=== PATIENT | female | born 1960 | race Caucasian/White ===

== ENCOUNTER → 2016-05-25 | Outpatient (CLI) | payer BC ==
[2016-05-25 10:14] LABS: ALT 22 U/L (9-52); AST 15 U/L (14-36); Alkaline Phosphatase 95 U/L (38-126); Anion Gap 12 mmol/L; Blood Urea Nitrogen 19 mg/dL (7-17); Calcium 9.8 mg/dL (8.4-10.2); Carbon Dioxide 26 mmol/L (22-30); Chloride 105 mmol/L (98-107); Cholesterol 202 mg/dL (<200); Glucose 127 mg/dL (74-99); HDL Cholesterol 54 mg/dL (40-60); Non-African American GFR(MDRD) >60 (>60 ml/min/1.73 sqM); Potassium 5.1 mmol/L (3.5-5.1); Sodium 143 mmol/L (137-145); Total Bilirubin 0.6 mg/dL (0.2-1.3); Triglycerides 128 mg/dL (<150)
== END | disposition home or self-care (01) ==
LOC: LABWHC1 09:23
PROVIDERS: ATTEND Internal Medicine Interventional Cardiology
DX: E78.2 Mixed hyperlipidemia (principal)
CPT/HCPCS: 36415; 80053; 80061

== ENCOUNTER → 2017-10-24 | Outpatient (CLI) | payer BC | END | disposition home or self-care (01) | LOC: LABWHC1 16:24 | PROVIDERS: ATTEND Nurse Practitioner Women's Health | DX: R07.9 Chest pain, unspecified (principal) | CPT/HCPCS: 36415; 84484; 86140; 93005 ==

== ENCOUNTER → 2018-10-07 | Outpatient (CLI) | payer BC | END | disposition home or self-care (01) | LOC: LABWHC1 14:06 | PROVIDERS: ATTEND Family Medicine | DX: R07.9 Chest pain, unspecified (principal) | CPT/HCPCS: 36415; 84484 ==

== ENCOUNTER → 2018-10-08 | Outpatient (CLI) | payer BC ==
--- NOTE | 2018-10-08 08:57 | CT ---
EXAMINATION TYPE: CT chest wo con DATE OF EXAM: 10/08/2018 COMPARISON: None HISTORY: 57-year-old female shortness of breath, Difficulty breathing TECHNIQUE: Contiguous axial scanning of the chest without IV contrast. Coronal and sagittal reconstru ctions performed. CT DLP: 506.4 mGycm Automated exposure control for dose reduction was used. FINDINGS: Heart normal size without pericardial effusion. Aorta normal caliber with conventional arch vessel branching anatomy. No thoracic lymphadenopathy. Strandy atelectasis at the anterior lung bases. No consolidation or pleural effusion. Tiny hiatal hernia. Visualized upper abdomen otherwise shows no gross abnormality. Bones: Mild degenerative disc disease midthoracic spine. IMPRESSION: TINY HIATAL HERNIA. SOME STRANDY BASILAR ATELECTASIS. OTHERWISE, NO SPECIFIC ABNORMALITY SEEN.
== END | disposition home or self-care (01) ==
LOC: RADCTMAIN 07:34
PROVIDERS: ATTEND Family Medicine
DX: J98.11 Atelectasis (principal); K44.9 Diaphragmatic hernia without obstruction or gangrene
CPT/HCPCS: 71250

== ENCOUNTER 2018-11-19 15:07 | Observation (INO) | payer BC ==
[2018-11-19] MEDS ORDERED: ASPIRIN 81 MG PO STA (15:29)
[2018-11-19] MEDS ORDERED: NITROGLYCERIN OINT 1 INCH/GM PACKET TOPICAL STA (15:29)
[2018-11-19] MEDS ORDERED: NITROGLYCERIN SL TABS 0.4 MG TAB SUBLINGUAL STA (15:29)
[2018-11-19] MEDS ORDERED: ACETAMINOPHEN TAB 500 MG TAB PO STA (15:30)
[2018-11-19 15:50] LABS: Basophils # (A) 0.1 k/uL (0-0.2); Basophils % (A) 1 %; Eosinophils # (A) 0.1 k/uL (0-0.7); Eosinophils % (A) 1 %; HCT 39.1 % (34.0-46.0); HGB 12.9 gm/dL (11.4-16.0); Lymphocytes # (A) 2.5 k/uL (1.0-4.8); Lymphocytes % (A) 30 %; MCH 27.6 pg (25.0-35.0); MCHC 33.1 g/dL (31.0-37.0); MCV 83.4 fL (80.0-100.0); Mean Platelet Volume 6.5; Monocytes # (A) 0.5 k/uL (0-1.0); Monocytes % (A) 6 %; Neutrophils # (A) 5.1 k/uL (1.3-7.7); Neutrophils % (A) 61 %; Platelet Count 350 k/uL (150-450); RBC 4.69 m/uL (3.80-5.40); RDW 13.9 % (11.5-15.5); WBC 8.4 k/uL (3.8-10.6)
--- NOTE | 2018-11-19 15:52 | ED ---
General Adult HPI - General Chief complaint: Chest Pain Stated complaint: Chest pain Time Seen by Provider: 11/19/18 15:15 Source: patient, RN notes reviewed Mode of arrival: wheelchair Limitations: no limitations - History of Present Illness Initial comments: This is a 57-year-old female with past medical history significant for a heart attack-and high blood pressure and high cholesterol. Patient states last night she had some chest pressure in the evening and it went away. Patient states today after lunch she started having some heaviness in her chest and a little bit of burning. Patient states the burning was consistent with some heartburn s he's had in the past but the heaviness did not feel similar to any heartburn she's had. Patient states that heaviness reminder her of the pain she had when she had a heart attack. Patient states the pain does radiate up into her left jaw. Patient denies any diaphoretic episodes. Patient denies any shortness of breath. Patient does states she's very nauseated. Patient denies abdominal pain patient denies any vomiting or diarrhea. Patient denies any lightheadedness dizziness or near syncopal episode. Patient denies any calf tenderness or leg swelling. - Related Data Home Medications Medication Instructions Recorded Confirmed Aspirin EC [Ecotrin Low Dose] 81 mg PO DAILY 12/14/15 11/19/18 Clopidogrel [Plavix] 75 mg PO DAILY 12/14/15 11/19/18 Albuterol Inhaler [Ventolin Hfa 2 puff INHALATION RT-Q6H PRN 11/19/18 11/19/18 Inhaler] Omeprazole 20 mg PO DAILY 11/19/18 11/19/18 Previous Rx's Medication Instructions Recorded Atorvastatin [Lipitor] 40 mg PO DAILY #40 tab 12/03/15 Metoprolol Tartrate [Lopressor] 25 mg PO BID #180 tab 12/03/15 Allergies Allergy/AdvReac Type Severity Reaction Status Date / Time gluten Allergy Rash/Hives Verified 11/19/18 15:56 diphenhydramine AdvReac Severe paradoxical Verified 11/19/18 15:56 excitation metoclopramide HCl AdvReac Unknown Verified 11/19/18 15:56 [From Reglan] Opioids - Morphine Analogues AdvReac patient Verified 11/19/18 15:56 does not want Opioids-Meperidine and AdvReac patient Verified 11/19/18 15:56 Related does not [Opioids-Meperidine & want Related] Opioids-Methadone and Related AdvReac patient Verified 11/19/18 15:56 [Opioids-Methadone & Related] does not want Review of Systems ROS Statement: Those systems with pertinent positive or pertinent negative responses have been documented in the HPI. ROS Other: All systems not noted in ROS Statement are negative. Past Medical History Past Medical History: Chest Pain / Angina, GERD/Reflux, Hyperlipidemia, Myocardial Infarction (CT) Additional Past Medical History / Comment(s): GLUTEN ALLERGY,ANEMIA, "HEADACHES", RLS Last Myocardial Infarction Date:: 12/02/2015 History of Any Multi-Drug Resistant Organisms: None Reported Past Surgical History: Section Additional Past Surgical History / Comment(s): DENTAL IMPLANTS Past Anesthesia/Blood Transfusion Reactions: Motion Sickness Additional Past Anesthesia/Blood Transfusion Reaction / Comment(s): CLAUSTERPHOBIA Past Psychological History: Anxiety Smoking Status: Never smoker Past Alcohol Use History: None Reported Past Drug Use History: None Reported - Past Family History Father Family Medical History: Congestive Heart Failure (CHF), CVA/TIA, Diabetes Mellitus Mother Family Medical History: Diabetes Mellitus Additional Family Medical History / Comment(s): OBESITY General Exam - General Exam Comments Initial Comments: GENERAL: Patient is well-developed and well-nourished. Patient is nontoxic and well- hydrated and is in mild distress. ENT: Neck is soft and supple. No significant lymphadenopathy is noted. Oropharynx is clear. Moist mucous membranes. Neck has full range of motion without eliciting any pain. EYES: The sclera were anicteric and conjunctiva were pink and moist. Extraocular movements were intact and pupils were equal round and reactive to light. Eyelids were unremarkable. PULMONARY: Unlabored respirations. Good breath sounds bilaterally. No audible rales rhonchi or wheezing was noted. CARDIOVASCULAR: There is a regular rate and rhythm without any murmurs gallops or rubs. ABDOMEN: Soft and nontender with normal bowel sounds. No palpable organomegaly was noted. There is no palpable pulsatile mass. SKIN: Skin is clear with no lesions or rashes and otherwise unremarkable. NEUROLOGIC: Patient is alert and oriented x3. Cranial nerves II through XII are grossly intact. Motor and sensory are also intact. Normal speech, volume and content. Symmetrical smile. MUSCULOSKELETAL: Normal extremities with adequate strength and full range of motion. No lower extremity swelling or edema. No calf tenderness. LYMPHATICS: No significant lymphadenopathy is noted PSYCHIATRIC: Normal psychiatric evaluation. Normal interpersonal interactions appears functionally intact in deals appropriately with others. No signs of depression. No signs of anxiety. Limitations: no limitations Course Vital Signs 11/19/18 11/19/18 11/19/18 15:13 15:44 15:57 Temperature 98.1 F Pulse Rate 84 75 Pulse Rate [ 60 Entry Level Receptionist ] Respiratory 18 16 Rate Blood Pressure 157/95 142/92 O2 Sat by Pulse 99 100 Oximetry 11/19/18 16:11 Temperature Pulse Rate 87 Pulse Rate [ Entry Level Receptionist ] Respiratory 18 Rate Blood Pressure 123/76 O2 Sat by Pulse 95 Oximetry Medical Decision Making - Medical Decision Making EKG shows normal sinus rhythm at 84 bpm AL interval is 158 QRSs 86 QT interval 380 QTC is 449. Patient's EKG shows no ST segment elevation or depression I compared this EKG to an old EKG and there are no acute changes noted. Chest x-ray shows no acute abnormality Patient's chest pain seemed to relieve when she took nitroglycerin. I started the patient heparin. I spoke with Dr. lam he agreed to admit the patient admitted the patient I consult cardiology I continued heparin and aspirin and Nitropaste on the floor. - Lab Data Result diagrams: 11/19/18 15:29 11/19/18 15:29 Lab Results 11/19/18 11/19/18 11/19/18 Range/Units 15:29 15:29 15:29 WBC 8.4 (3.8-10.6) k/uL RBC 4.69 (3.80-5.40) m/uL Hgb 12.9 (11.4-16.0) gm/dL Hct 39.1 (34.0-46.0) % MCV 83.4 (80.0-100.0) fL MCH 27.6 (25.0-35.0) pg MCHC 33.1 (31.0-37.0) g/dL RDW 13.9 (11.5-15.5) % Plt Count 350 (150-450) k/uL Neutrophils % 61 % Lymphocytes % 30 % Monocytes % 6 % Eosinophils % 1 % Basophils % 1 % Neutrophils # 5.1 (1.3-7.7) k/uL Lymphocytes # 2.5 (1.0-4.8) k/uL Monocytes # 0.5 (0-1.0) k/uL Eosinophils # 0.1 (0-0.7) k/uL Basophils # 0.1 (0-0.2) k/uL PT 9.5 (9.0-12.0) sec INR 0.9 (<1.2) APTT 22.9 (22.0-30.0) sec Sodium 142 (137-145) mmol/L Potassium 4.8 (3.5-5.1) mmol/L Chloride 105 (98-107) mmol/L Carbon Dioxide 28 (22-30) mmol/L Anion Gap 9 mmol/L BUN 16 (7-17) mg/dL Creatinine 0.44 L (0.52-1.04) mg/dL Est GFR (CKD-EPI)AfAm >90 (>60 ml/min/1.73 sqM) Est GFR (CKD-EPI)NonAf >90 (>60 ml/min/1.73 sqM) Glucose 135 H (74-99) mg/dL Calcium 9.6 (8.4-10.2) mg/dL Magnesium 1.8 (1.6-2.3) mg/dL Total Bilirubin 0.7 (0.2-1.3) mg/dL AST 23 (14-36) U/L ALT 19 (9-52) U/L Alkaline Phosphatase 104 (38-126) U/L Troponin I (0.000-0.034) ng/mL Total Protein 7.5 (6.3-8.2) g/dL Albumin 4.3 (3.5-5.0) g/dL 11/19/18 Range/Units 15:29 WBC (3.8-10.6) k/uL RBC (3.80-5.40) m/uL Hgb (11.4-16.0) gm/dL Hct (34.0-46.0) % MCV (80.0-100.0) fL MCH (25.0-35.0) pg MCHC (31.0-37.0) g/dL RDW (11.5-15.5) % Plt Count (150-450) k/uL Neutrophils % % Lymphocytes % % Monocytes % % Eosinophils % % Basophils % % Neutrophils # (1.3-7.7) k/uL Lymphocytes # (1.0-4.8) k/uL Monocytes # (0-1.0) k/uL Eosinophils # (0-0.7) k/uL Basophils # (0-0.2) k/uL PT (9.0-12.0) sec INR (<1.2) APTT (22.0-30.0) sec Sodium (137-145) mmol/L Potassium (3.5-5.1) mmol/L Chloride (98-107) mmol/L Carbon Dioxide (22-30) mmol/L Anion Gap mmol/L BUN (7-17) mg/dL Creatinine (0.52-1.04) mg/dL Est GFR (CKD-EPI)AfAm (>60 ml/min/1.73 sqM) Est GFR (CKD-EPI)NonAf (>60 ml/min/1.73 sqM) Glucose (74-99) mg/dL Calcium (8.4-10.2) mg/dL Magnesium (1.6-2.3) mg/dL Total Bilirubin (0.2-1.3) mg/dL AST (14-36) U/L ALT (9-52) U/L Alkaline Phosphatase (38-126) U/L Troponin I <0.012 (0.000-0.034) ng/mL Total Protein (6.3-8.2) g/dL Albumin (3.5-5.0) g/dL Critical Care Time Critical Care Time: Yes Total Critical Care Time: 35 Disposition Clinical Impression: Unstable angina pectoris Disposition: ADMITTED IP TO THIS HOSP Referrals: Cleveland Lam MD [Primary Care Provider] - 1-2 days Time of Disposition: 17:25
[2018-11-19 15:58] LABS: INR 0.9 (<1.2); Partial Thromboplastin Time 22.9 sec (22.0-30.0); Prothrombin Time 9.5 sec (9.0-12.0)
[2018-11-19 16:00] LABS: ALT 19 U/L (9-52); AST 23 U/L (14-36); African American GFR (CKD) >90 (>60 ml/min/1.73 sqM); Albumin 4.3 g/dL (3.5-5.0); Alkaline Phosphatase 104 U/L (38-126); Anion Gap 9 mmol/L; Blood Urea Nitrogen 16 mg/dL (7-17); Calcium 9.6 mg/dL (8.4-10.2); Carbon Dioxide 28 mmol/L (22-30); Chloride 105 mmol/L (98-107); Glucose 135 mg/dL (74-99); Magnesium 1.8 mg/dL (1.6-2.3); Non-African American GFR(CKD) >90 (>60 ml/min/1.73 sqM); Potassium 4.8 mmol/L (3.5-5.1); Sodium 142 mmol/L (137-145); Total Bilirubin 0.7 mg/dL (0.2-1.3); Total Protein 7.5 g/dL (6.3-8.2)
--- NOTE | 2018-11-19 16:00 | XR ---
EXAMINATION TYPE: XR chest 2V DATE OF EXAM: 11/19/2018 COMPARISON: 12/14/2015 HISTORY: 57-year-old female with chest pain TECHNIQUE: PA and lateral views FINDINGS: Heart normal size. Aorta and pulmonary vasculature within normal limits. Some strandy atelectasis in the lower lungs. No consolidation or pleural effusion. IMPRESSION: No acute cardiopulmonary process.
[2018-11-19] MEDS ORDERED: LORazepam 2 MG/ML INJ IV STA (17:01)
[2018-11-19] MEDS ORDERED: NITROGLYCERIN SL TABS 0.4 MG TAB SUBLINGUAL PRN (17:25)
[2018-11-19 18:48] VITALS: BMI 32.1
[2018-11-19] MEDS ORDERED: ALBUTEROL NEBULIZED 2.5 MG/3 ML INHALATION PRN (20:42)
[2018-11-19] MEDS ORDERED: ACETAMINOPHEN TAB 325 MG TAB PO PRN (20:46)
[2018-11-19] MEDS: NITROGLYCERIN OINT 1 INCH/GM PACKET TOPICAL SCH (23:20)
[2018-11-20 04:08] LABS: Cholesterol 148 mg/dL (<200); HDL Cholesterol 37 mg/dL (40-60); LDL Cholesterol,Calculated 91 mg/dL (0-99); Triglycerides 101 mg/dL (<150)
[2018-11-20] MEDS: NITROGLYCERIN OINT 1 INCH/GM PACKET TOPICAL SCH (04:09)
[2018-11-20 05:16] VITALS: RESP 18
[2018-11-20] MEDS ORDERED: METOPROLOL TARTRATE 25 MG TAB PO SCH (09:00)
[2018-11-20] MEDS ORDERED: ASPIRIN 325 MG TAB PO SCH (09:00)
[2018-11-20] MEDS ORDERED: ATORVASTATIN 40 MG TAB PO SCH (09:00)
[2018-11-20] MEDS ORDERED: ASPIRIN 81 MG PO SCH (09:00)
[2018-11-20] MEDS ORDERED: CLOPIDOGREL 75 MG TAB PO SCH (09:00)
[2018-11-20] MEDS ORDERED: ATORVASTATIN 80 MG TAB PO SCH (09:00)
--- NOTE | 2018-11-20 11:05 | ECHOF ---
Referral Reason:cp MEASUREMENTS -------- HEIGHT: 170.2 cm WEIGHT: 104.3 kg BP: 114/74 RVIDd: 3.1 cm (< 3.3) IVSd: 0.9 cm (0.6 - 1.1) LVIDd: 4.4 cm (3.9 - 5.3) LVPWd: 1.3 cm (0.6 - 1.1) IVSs: 1.2 cm LVIDs: 3.1 cm LVPWs: 1.2 cm LA Diam: 4.4 cm (2.7 - 3.8) LAESV Index (A-L): 29.68 ml/m Ao Diam: 2.8 cm (2.0 - 3.7) AV Cusp: 1.8 cm (1.5 - 2.6) LA Diam: 4.1 cm (2.7 - 3.8) MV EXCURSION: 17.007 mm (> 18.000) MV EF SLOPE: 94 mm/s (70 - 150) EPSS: 0.8 cm MV E Parminder: 0.56 m/s MV DecT: 188 ms MV A Parminder: 0.81 m/s MV E/A Ratio: 0.70 RAP: 5.00 mmHg RVSP: 12.67 mmHg FINDINGS -------- Sinus rhythm. This was a technically good study. LV size, wall thickness and systolic function are normal, with an EF greater than 55%. The left joelle tricular size is normal. The right ventricle is normal in size. The left atrium is mildly dilated. LA is midly dilated 29-33ml/m2. The right atrial size is normal. The aortic valve is trileaflet, and appears structurally normal. No aortic stenosis or regurgitation. Mild mitral annular calcification present. Mild mitral regurgitation is present. Mild tricuspid regurgitation present. There is no evidence of pulmonary hypertension. The right v entricular systolic pressure, as measured by Doppler, is 12.67mmHg. There is no pulmonic regurgitation present. The aortic root size is normal. There is no pericardial effusion. CONCLUSIONS -------- 1. Sinus rhythm. 2. This was a technically good study. 3. LV size, wall thickness and systolic function are normal, with an EF greater than 55%. 4. The left ventricular size is normal. 5. The right ventricle is normal in size. 6. The left atrium is mildly dilated. 7. LA is midly dilated 29-33ml/m2. 8. The right atrial size is normal. 9. The aortic valve is trileaflet, and appears structurally normal. No aortic stenosis or regurgitati on. 10. Mild mitral annular calcification present. 11. Mild mitral regurgitation is present. 12. Mild tricuspid regurgitation present. 13. There is no evidence of pulmonary hypertension. 14. The right ventricular systolic pressure, as measured by Doppler, is 12.67mmHg. 15. There is no pulmonic regurgitation present. 16. The aortic root size is normal. 17. There is no pericardial effusion. STAVE BLOCK ROLLER: Mindi Nina RDCS
--- NOTE | 2018-11-20 11:37 | P.CRDCN ---
History of Present Illness History of present illness: This is a pleasant 57-year-old female past medical history significant for coronary artery disease, dyslipidemia, hypertension and gastroesophageal reflux disease. She follows in the office with Dr. Valentine. We have been asked to see her in consultation secondary to chest discomfort. She states Sunday night while at work she felt a heavy sensation in the chest. She was sitting down at her desk finishing up some work and did feel quite emotionally stressed at that time. That episode lasted about 20 minutes. There was no radiation to the arm, back, neck or jaw. There was no associated symptoms. Again yesterday morning while at work she was sitting at her desk and 20 minutes after eating potatoes from the cafeteria she felt a burning sensation in the mid-sternal region that radiated up her chest into her neck more so on the left side. Persisted for about 15 minutes so she came to ED for evaluation. NTG given and her symptoms subsided. No further chest discomfort since being admitted. EKG reveals sinus mechanism with LVH. Chest x-ray is negative for an acute cardiopulmonary process. Laboratory data reviewed, cardiac enzymes negative 3 CBC unremarkable, potassium 4.8, creatinine 0.44, magnesium 1.8, LDL 91. Current daily cardiac medications include aspirin 81 mg daily, atorvastatin 40 mg daily, Plavix 75 mg daily and Lopressor 25 mg twice a day. Most recent cardiac catheterization performed in 2016 revealed 80% stenosis of the mid OM branch. At that time angioplasty was not recommended maximum medical therapy was initiated. At the time of my exam: CONSTITUTIONAL: Denies fever. Denies chills. EYES: Denies blurred vision. Denies vision changes. Denies eye pain. EARS, NOSE, MOUTH & THROAT: Denies headache. Denies sore throat. Denies ear pain. CARDIOVASCULAR: Denies chest pain. Denies shortness of breath. Denies orthopnea. Denies PND. Denies palpitations. RESPIRATORY: Denies cough. GASTROINTESTINAL: Denies abdominal pain. Denies diarrhea. Denies constipation. Denies nausea. Denies vomiting. MUSCULOSKELETAL: Denies myalgias. INTEGUMENTARY: Denies pruitis. Denies rash. NEUROLOGIC: Denies numbness. Denies tingling. Denies weakness. PSYCHIATRIC: Denies anxiety. Denies depression. ENDOCRINE: Denies fatigue. Denies weight change. Denies polydipsia. Denies polyurina. GENITOURINARY: Denies burning, hematuria or urgency with micturation. HEMATOLOGIC: Denies history of anemia. Denies bleeding. Blood pressure 114/74 heart rate 70 afebrile maintaining oxygen saturation on room air GENERAL: This is a 57-year-old female in no apparent distress at the time of my examination. HEENT: Head is atraumatic, normocephalic. Pupils are equal, round. Sclerae anicteric. Conjunctivae are clear. Mucous membranes of the mouth are moist. Neck is supple. There is no jugular venous distention. No carotid bruit is heard. LUNGS: Clear to auscultation no wheezes, rales or rhonchi. No chest wall tenderness is noted on palpation or with deep breathing. HEART: Regular rate and rhythm without murmurs, rubs or gallops. S1 and S2 heard. ABDOMEN: Soft, nontender. Bowel sounds are heard. No organomegaly noted. EXTREMITIES: No evidence of peripheral edema and no calf tenderness noted. VASCULAR: Radial and dorsalis pedis pulses palpated, no evidence of clubbing. NEUROLOGIC: Patient is awake, alert and oriented x3. ASSESSMENT Chest pain, atypical. An acute coronary event has been ruled out. Coronary artery disease Hypertension Dyslipidemia Gastroesophageal reflux disease Obesity, BMI 36 PLAN An acute coronary event has been ruled out with no EKG evidence of ischemia and negative cardiac enzymes. Obtain 2-D echocardiogram and Doppler study to assess cardiac structure and function. Perform Cardiolite stress test to assess for reversibility in the area of known ischemia or for possibility of progression of disease. Increase atorvastatin to 80 mg daily for target LDL of less than 70. If stress test is normal she may be discharged from a cardiac perspective to follow-up with Dr. Valentine in the office. Thank you kindly for this consultation. Nurse Practitioner note has been reviewed, I agree with a documented findings and plan of care. Patient was seen and examined. Past Medical History Past Medical History: Chest Pain / Angina, GERD/Reflux, Hyperlipidemia, Myocardial Infarction ([place]) Additional Past Medical History / Comment(s): GLUTEN ALLERGY,ANEMIA, "HEADACHES", RLS Last Myocardial Infarction Date:: 12/02/2015 History of Any Multi-Drug Resistant Organisms: None Reported Past Surgical History: Section, Heart Catheterization Additional Past Surgical History / Comment(s): DENTAL IMPLANTS Past Anesthesia/Blood Transfusion Reactions: Motion Sickness Additional Past Anesthesia/Blood Transfusion Reaction / Comment(s): CLAUSTERPHOBIA Past Psychological History: Anxiety Smoking Status: Never smoker Past Alcohol Use History: None Reported Past Drug Use History: None Reported - Past Family History Father Family Medical History: Congestive Heart Failure (CHF), CVA/TIA, Diabetes Mellitus Additional Family Medical History / Comment(s): smoker Mother Family Medical History: Diabetes Mellitus Additional Family Medical History / Comment(s): OBESITY Medications and Allergies Home Medications Medication Instructions Recorded Confirmed Type Atorvastatin [Lipitor] 40 mg PO DAILY #40 tab 12/03/15 11/19/18 Rx Metoprolol Tartrate [Lopressor] 25 mg PO BID #180 tab 12/03/15 11/19/18 Rx Aspirin EC [Ecotrin Low Dose] 81 mg PO DAILY 12/14/15 11/19/18 History Clopidogrel [Plavix] 75 mg PO DAILY 12/14/15 11/19/18 History Albuterol Inhaler [Ventolin Hfa 2 puff INHALATION RT-Q6H PRN 11/19/18 11/19/18 History Inhaler] Omeprazole 20 mg PO DAILY 11/19/18 11/19/18 History Allergies Allergy/AdvReac Type Severity Reaction Status Date / Time gluten Allergy Rash/Hives Verified 11/19/18 15:56 diphenhydramine AdvReac Severe paradoxical Verified 11/19/18 15:56 excitation metoclopramide HCl AdvReac Unknown Verified 11/19/18 15:56 [From Reglan] Opioids - Morphine Analogues AdvReac patient Verified 11/19/18 15:56 does not want Opioids-Meperidine and AdvReac patient Verified 11/19/18 15:56 Related does not [Opioids-Meperidine & want Related] Opioids-Methadone and Related AdvReac patient Verified 11/19/18 15:56 [Opioids-Methadone & Related] does not want Physical Exam Vitals: Vital Signs Temp Pulse Pulse Pulse Resp BP BP 11/20/18 07:00 97.6 F 70 18 114/74 11/20/18 04:00 97.7 F 68 18 103/62 11/20/18 00:00 74 16 11/19/18 23:35 97.6 F 74 16 120/66 11/19/18 20:00 75 16 11/19/18 18:15 97.5 F L 75 16 11/19/18 18:09 98.1 F 75 18 125/71 11/19/18 17:32 75 18 125/71 11/19/18 16:11 87 18 123/76 11/19/18 15:57 75 16 142/92 11/19/18 15:44 60 11/19/18 15:13 98.1 F 84 18 157/95 BP Pulse Ox 11/20/18 07:00 95 11/20/18 04:00 95 11/20/18 00:00 11/19/18 23:35 93 L 11/19/18 20:00 11/19/18 18:15 124/80 96 11/19/18 18:09 98 11/19/18 17:32 98 11/19/18 16:11 95 11/19/18 15:57 100 11/19/18 15:44 11/19/18 15:13 99 Intake and Output 11/19/18 11/20/18 11/20/18 22:59 06:59 14:59 Other: # Voids 1 Weight 104.326 kg Results 11/19/18 15:29 11/19/18 15:29 Cardiac Enzymes 11/19/18 11/19/18 11/19/18 Range/Units 15:29 15:29 21:16 AST 23 (14-36) U/L Troponin I <0.012 <0.012 (0.000-0.034) ng/mL 11/20/18 Range/Units 03:26 AST (14-36) U/L Troponin I <0.012 (0.000-0.034) ng/mL Coagulation 11/19/18 Range/Units 15:29 PT 9.5 (9.0-12.0) sec APTT 22.9 (22.0-30.0) sec Lipids 11/20/18 Range/Units 03:26 Triglycerides 101 (<150) mg/dL Cholesterol 148 (<200) mg/dL HDL Cholesterol 37 L (40-60) mg/dL CBC 11/19/18 Range/Units 15:29 WBC 8.4 (3.8-10.6) k/uL RBC 4.69 (3.80-5.40) m/uL Hgb 12.9 (11.4-16.0) gm/dL Hct 39.1 (34.0-46.0) % Plt Count 350 (150-450) k/uL Comprehensive Metabolic Panel 11/19/18 Range/Units 15:29 Sodium 142 (137-145) mmol/L Potassium 4.8 (3.5-5.1) mmol/L Chloride 105 (98-107) mmol/L Carbon Dioxide 28 (22-30) mmol/L BUN 16 (7-17) mg/dL Creatinine 0.44 L (0.52-1.04) mg/dL Glucose 135 H (74-99) mg/dL Calcium 9.6 (8.4-10.2) mg/dL AST 23 (14-36) U/L ALT 19 (9-52) U/L Alkaline Phosphatase 104 (38-126) U/L Total Protein 7.5 (6.3-8.2) g/dL Albumin 4.3 (3.5-5.0) g/dL Current Medications Generic Name Dose Route Start Last Admin Trade Name Freq PRN Reason Stop Dose Admin Acetaminophen 650 mg 11/19/18 20:46 11/19/18 23:20 Tylenol Tab PO 650 mg Q6HR PRN Administration Fever and/ or Mild Pain Albuterol Sulfate 2.5 mg 11/19/18 20:42 Ventolin Nebulized INHALATION RT-Q6H PRN Shortness Of Breath Aspirin 81 mg 11/20/18 09:00 Aspirin PO DAILY [facility] Atorvastatin Calcium 40 mg 11/20/18 09:00 Lipitor PO DAILY [facility] Clopidogrel Bisulfate 75 mg 11/20/18 09:00 Plavix PO DAILY [facility] Metoprolol Tartrate 25 mg 11/20/18 09:00 Lopressor PO BID [facility] Nitroglycerin 1 inch 11/20/18 00:00 11/20/18 04:09 Nitro-Bid Oint TOPICAL Not Given Q6HR [facility] Nitroglycerin 0.4 mg 11/19/18 17:25 Nitrostat SUBLINGUAL Q5M PRN Chest Pain Pantoprazole Sodium 40 mg 11/20/18 07:30 Protonix PO AC-BRKFST WILLIAM Intake and Output 11/19/18 11/20/18 11/20/18 22:59 06:59 14:59 Other: # Voids 1 Weight 104.326 kg 11/19/18 15:29 11/19/18 15:29
--- NOTE | 2018-11-20 12:00 | EST ---
EXERCISE STRESS DATE OF SERVICE: 11/20/2018 AGE: 57 SEX: Female HT: 67" WT: 230 pounds PROTOCOL: Cardiolite Jose M STAGE: II DURATION OF EXERCISE: 6 minutes HEART RATE REST: 94 BLOOD PRESSURE REST: 152/96 MAXIMUM HEART RATE ACHIEVED: 143 MAXIMUM BLOOD PRESSURE: 196/63 85% MPHR: 139 100% MPHR: 164 METS: 6.9 INDICATIONS: Chest pain. CLINICAL INFORMATION: Baseline EKG shows sinus rhythm, normal axis, normal intervals. Patient exercised on Jose M protocol for a total of 6 minutes achieving 7 METs, 87% of predicted maximal heart rate without chest pain or diagnostic ST-segment depression. CONCLUSIONS: 1. Average exercise tolerance. 2. Negative stress test by EKG criteria. 3. Cardiolite portion of the stress test will be reported separately. MMODL / IJN: [id number] /
[2018-11-20] MEDS: PANTOPRAZOLE 40 MG TABLET PO SCH ×2 (12:04→12:05)
--- NOTE | 2018-11-20 12:11 | NM ---
EXAMINATION TYPE: NM stress cardiolite complete DATE OF EXAM: 11/20/2018 COMPARISON: NONE HISTORY: Precordial chest pain and abnormal EKG. TECHNIQUE: After the intravenous administration of 10.6 mCi Tc 99m Sestamibi - Rest images obtained 45 minutes post injection. The patient exercised using a MARTÍN protocol and 1 minute prior to peak exercise was injected with 25.8 mCi Tc 99m Sestamibi - Stress images obtained 10 minutes post injecti on. FINDINGS: Targeted heart rate was achieved during performance of the study. Review of stress and rest SPECT royce ges demonstrates no distinct perfusion abnormality. Gated analysis shows normal wall motion with an estimated left ventricular ejection fraction of 47 %. IMPRESSION: No scintigraphic evidence for reversible ischemia
[2018-11-20 12:35] VITALS: BP 124/70; PULSE 75; TEMP 97.5
--- NOTE | 2018-11-20 14:23 | P.HPIM ---
History of Present Illness H&P Date: 11/20/18 Chief Complaint: Chest pain This is a 57-year-old female history of CAD, [place], gastroesophageal reflux disease, anxiety, presented to the ER with fluctuating chest pressure since the evening before at work, reoccurring after lunch consuming garlic potatoes with chest heaviness and burning, radiating up into her left jaw, accompanied by nausea, resembling her prior heart attack. Denies diaphoresis, lightheadedness dizziness or focal deficits. Denies syncope. Denies shortness of breath. Denies abdominal pain, vomiting or diarrhea.EKG reporting normal sinus rhythm. Troponins negative 3. Chest x-ray nonacute. Vital signs stable, afebrile, normal WBC. LDL 91, HDL 37. Chest pain subsided, pressure persistent .Heparin drip initiated, aspirin and Nitropaste ordered. Cardiology consulted. Review of Systems ROS Statement: Those systems with pertinent positive or pertinent negative responses have been documented in the HPI. ROS Other: All systems not noted in ROS Statement are negative. Past Medical History Past Medical History: Chest Pain / Angina, GERD/Reflux, Hyperlipidemia, Myocardial Infarction (MD) Additional Past Medical History / Comment(s): GLUTEN ALLERGY,ANEMIA, "HEADACHES", RLS Last Myocardial Infarction Date:: 12/02/2015 History of Any Multi-Drug Resistant Organisms: None Reported Past Surgical History: Section, Heart Catheterization Additional Past Surgical History / Comment(s): DENTAL IMPLANTS Past Anesthesia/Blood Transfusion Reactions: Motion Sickness Additional Past Anesthesia/Blood Transfusion Reaction / Comment(s): CLAUSTERPHOBIA Past Psychological History: Anxiety Smoking Status: Never smoker Past Alcohol Use History: None Reported Past Drug Use History: None Reported - Past Family History Father Family Medical History: Congestive Heart Failure (CHF), CVA/TIA, Diabetes Mellitus Additional Family Medical History / Comment(s): smoker Mother Family Medical History: Diabetes Mellitus Additional Family Medical History / Comment(s): OBESITY Medications and Allergies Home Medications Medication Instructions Recorded Confirmed Type Metoprolol Tartrate [Lopressor] 25 mg PO BID #180 tab 12/03/15 11/19/18 Rx Aspirin EC [Ecotrin Low Dose] 81 mg PO DAILY 12/14/15 11/19/18 History Albuterol Inhaler [Ventolin Hfa 2 puff INHALATION RT-Q6H PRN 11/19/18 11/19/18 History Inhaler] Omeprazole 20 mg PO DAILY 11/19/18 11/19/18 History Atorvastatin [Lipitor] 80 mg PO DAILY #90 tab 11/20/18 Rx Allergies Allergy/AdvReac Type Severity Reaction Status Date / Time gluten Allergy Rash/Hives Verified 11/19/18 15:56 diphenhydramine AdvReac Severe paradoxical Verified 11/19/18 15:56 excitation metoclopramide HCl AdvReac Unknown Verified 11/19/18 15:56 [From Reglan] Opioids - Morphine Analogues AdvReac patient Verified 11/19/18 15:56 does not want Opioids-Meperidine and AdvReac patient Verified 11/19/18 15:56 Related does not [Opioids-Meperidine & want Related] Opioids-Methadone and Related AdvReac patient Verified 11/19/18 15:56 [Opioids-Methadone & Related] does not want Physical Exam Vitals: Vital Signs Temp Pulse Pulse Pulse Resp BP BP 11/20/18 07:00 97.6 F 70 18 114/74 11/20/18 04:00 97.7 F 68 18 103/62 11/20/18 00:00 74 16 11/19/18 23:35 97.6 F 74 16 120/66 11/19/18 20:00 75 16 11/19/18 18:15 97.5 F L 75 16 11/19/18 18:09 98.1 F 75 18 125/71 11/19/18 17:32 75 18 125/71 11/19/18 16:11 87 18 123/76 11/19/18 15:57 75 16 142/92 11/19/18 15:44 60 11/19/18 15:13 98.1 F 84 18 157/95 BP Pulse Ox 11/20/18 07:00 95 11/20/18 04:00 95 11/20/18 00:00 11/19/18 23:35 93 L 11/19/18 20:00 11/19/18 18:15 124/80 96 11/19/18 18:09 98 11/19/18 17:32 98 11/19/18 16:11 95 11/19/18 15:57 100 11/19/18 15:44 11/19/18 15:13 99 Intake and Output 11/19/18 11/20/18 11/20/18 22:59 06:59 14:59 Other: # Voids 1 Weight 104.326 kg PHYSICAL EXAM: VITAL SIGNS: As above GENERAL: Sitting up in bed, no acute distress HEENT: Conjunctivae normal. eyes normal. Oral mucosa moist NECK: No JVD. No thyroid enlargement. No LNs CARDIOVASCULAR: S1, S2 regular.. No murmur RESPIRATION: Unlabored, Breath sounds diminished in the bases. No rhonchi or crackles. No bronchial breathing. ABDOMEN: Soft, nontender . No guarding. no masses palpable. No ascites, No hepatosplenomegaly.Bowel sounds heard. LEGS: No edema. no swelling , no calf tenderness. PSYCHIATRY: Alert and oriented X3, mood and affect normal. NERVOUS SYSTEM: Cranial N 2-12 grossly normal. Moves all 4 limbs. Diffuse weakness No focal deficits. Strength and sensation grossly intact.. Skin: no lesions, no rash Joints: No active swelling. No inflammation. Lymphatic system. No LN neck axilla or groin. Results CBC & Chem 7: 11/19/18 15:29 11/19/18 15:29 Labs: Abnormal Lab Results - Last 24 Hours (Table) 11/19/18 11/20/18 Range/Units 15:29 03:26 Creatinine 0.44 L (0.52-1.04) mg/dL Glucose 135 H (74-99) mg/dL HDL Cholesterol 37 L (40-60) mg/dL Thrombosis Risk Factor Assmnt - Choose All That Apply Any of the Below Risk Factors Present?: Yes Each Factor Represents 1 point: Age 41-60 years, Obesity (BMI >25) Other Risk Factors: No Other congenital or acquired thrombophilia - If yes, enter type in comment: No Thrombosis Risk Factor Assessment Total Risk Factor Score: 2 Thrombosis Risk Factor Assessment Level: Low Risk Assessment and Plan Assessment: -Acute chest pain, possible unstable angina -CAD, history of MD, cardiac catheterizations -Gastroesophageal reflux disease -Hyperlipidemia -Chronic anemia -Claustrophobia -Anxiety _ Obesity, BMI 36 Plan: Continue current medication regime ,monitoring and symptomatic treatment. Maintain heparin drip. Cardiology consulted, possible stress test. Echo ordered. Home meds have been reviewed and resumed accordingly. Further recommendations to follow. The impression and plan of care has been dictated as directed. : I performed a history and examination of this patient, discussed the same with the dictator. I agree with the dictator's note ,documented as a scribe. Any additional findings or plans will be noted. Time taken: 35 min.
--- NOTE | 2018-11-20 14:39 | P.DS ---
Providers Date of admission: 11/19/18 17:35 Expected date of discharge: 11/20/18 Attending physician: Cleveland Solorio Consults: 11/19/18 17:25 Consult Physician Urgent Consulting Provider: [facility] Consult Reason/Comments: Unstable angina Do you want consulting provider notified?: Yes Primary care physician: Cleveland Solorio Hospital Course: Final Diagnoses: -Acute chest pain, possible unstable angina -CAD, history of [place], cardiac catheterizations -Gastroesophageal reflux disease -Hyperlipidemia -Chronic anemia -Claustrophobia -Anxiety -Obesity, BMI 36 Hospital course: This is a 57-year-old female history of CAD, [place], gastroesophageal reflux disease, anxiety, presented to the ER with fluctuating chest pressure since the evening before at work, reoccurring after lunch consuming garlic potatoes with chest heaviness and burning, radiating up into her left jaw, accompanied by nausea, resembling her prior heart attack. Denies diaphoresis, lightheadedness dizziness or focal deficits. Denies syncope. Denies shortness of breath. Denies abdominal pain, vomiting or diarrhea.EKG reporting normal sinus rhythm. Troponins negative 3. Chest x-ray nonacute. Vital signs stable, afebrile, normal WBC. LDL 91, HDL 37. Chest pain subsided, pressure persistent .Heparin drip initiated, aspirin and Nitropaste ordered. Cardiology consulted. Patient also reported she has been under significant stress.Evaluated by cardiology, underwent Cardiolite stress test reported as negative. Significant clinical improvement. Statin increased secondary to LDL 91. Cleared by cardiology for discharge. Patient is being discharged home in stable condition with guarded prognosis. EXAM: GENERAL: Alert and oriented 3, no acute distress CARDIOVASCULAR: S1, S2 regular.. No murmur RESPIRATION: Unlabored, Breath sounds diminished in the bases. No rhonchi or crackles. No wheezing. ABDOMEN: Soft, nontender . No guarding. no masses palpable. Positive Bowel sounds. NERVOUS SYSTEM:No focal deficits. The impression and plan of care has been dictated as directed. : I performed a history and examination of this patient, discussed the same with the dictator. I agree with the dictator's note ,documented as a scribe. Any additional findings or plans will be noted. Time taken: 35 min. Patient Condition at Discharge: Stable Plan - Discharge Summary Discharge Rx Participant: No New Discharge Prescriptions: New Atorvastatin [Lipitor] 80 mg PO DAILY #90 tab Continue Metoprolol Tartrate [Lopressor] 25 mg PO BID #180 tab Aspirin EC [Ecotrin Low Dose] 81 mg PO DAILY Albuterol Inhaler [Ventolin Hfa Inhaler] 2 puff INHALATION RT-Q6H PRN PRN Reason: Shortness Of Breath Omeprazole 20 mg PO DAILY Discontinued Atorvastatin [Lipitor] 40 mg PO DAILY #40 tab Clopidogrel [Plavix] 75 mg PO DAILY Discharge Medication List Metoprolol Tartrate [Lopressor] 25 mg PO BID #180 tab 12/03/15 [Rx] Aspirin EC [Ecotrin Low Dose] 81 mg PO DAILY 12/14/15 [History] Albuterol Inhaler [Ventolin Hfa Inhaler] 2 puff INHALATION RT-Q6H PRN 11/19/18 [History] Omeprazole 20 mg PO DAILY 11/19/18 [History] Atorvastatin [Lipitor] 80 mg PO DAILY #90 tab 11/20/18 [Rx] Follow up Appointment(s)/Referral(s): Jorge Valentine MD [STAFF PHYSICIAN] - 12/05/18 1:30 pm Cleveland Solorio MD [Primary Care Provider] - 1-2 days Patient Instructions/Handouts: Chest Pain (DC)
== END 2018-11-20 14:31 | disposition home or self-care (01) ==
LOC: EC 15:07 → 1SOBS 17:35
PROVIDERS: ADMIT Family Medicine; ATTEND Family Medicine
DX: R07.89 Other chest pain (principal); I25.10 Atherosclerotic heart disease of native coronary artery without angina pectoris; E78.5 Hyperlipidemia, unspecified; G25.81 Restless legs syndrome; D64.9 Anemia, unspecified; E78.00 Pure hypercholesterolemia, unspecified; I10 Essential (primary) hypertension; F40.240 Claustrophobia; K21.9 Gastro-esophageal reflux disease without esophagitis; Z79.82 Long term (current) use of aspirin; Z79.02 Long term (current) use of antithrombotics/antiplatelets; Z79.899 Other long term (current) drug therapy; E66.9 Obesity, unspecified; Z68.36 Body mass index [BMI] 36.0-36.9, adult; Z91.02 Food additives allergy status; Z96.5 Presence of tooth-root and mandibular implants; I25.2 Old myocardial infarction; Z82.49 Family history of ischemic heart disease and other diseases of the circulatory system; Z83.3 Family history of diabetes mellitus; F41.9 Anxiety disorder, unspecified; Z88.5 Allergy status to narcotic agent; Z88.8 Allergy status to other drugs, medicaments and biological substances
CPT/HCPCS: 96374; 99291; 36415; 93005; 93017; 93306; 80061; 80053; 83735; 84484 ×2; 85025; 85610; 85730; 71046; 78452; G0378 ×2; A9500; J2060

== ENCOUNTER → 2020-02-19 | Outpatient (CLI) | payer BC | END | disposition home or self-care (01) | LOC: LABWHC1 15:59 | PROVIDERS: ATTEND Family Medicine | DX: Z20.828 Contact with and (suspected) exposure to other viral communicable diseases (principal) | CPT/HCPCS: 36415; 86769 ==

== ENCOUNTER → 2020-08-09 | Outpatient (CLI) | payer BC ==
[2020-08-09 13:13] LABS: Basophils # (A) 0.1 k/uL (0-0.2); Basophils % (A) 1 %; Eosinophils # (A) 0.1 k/uL (0-0.7); Eosinophils % (A) 1 %; HCT 39.2 % (34.0-46.0); HGB 13.3 gm/dL (11.4-16.0); Lymphocytes # (A) 2.6 k/uL (1.0-4.8); Lymphocytes % (A) 32 %; MCHC 33.9 g/dL (31.0-37.0); MCV 85.6 fL (80.0-100.0); Mean Platelet Volume 6.8; Monocytes # (A) 0.4 k/uL (0-1.0); Monocytes % (A) 5 %; Neutrophils # (A) 4.7 k/uL (1.3-7.7); Neutrophils % (A) 59 %; Platelet Count 351 k/uL (150-450); RBC 4.58 m/uL (3.80-5.40); RDW 13.4 % (11.5-15.5)
[2020-08-09 13:47] LABS: ALT 17 U/L (4-34); AST 18 U/L (14-36); African American GFR (CKD) >90 (>60 ml/min/1.73 sqM); Albumin 4.3 g/dL (3.5-5.0); Albumin/Globulin Ratio 1.3; Alkaline Phosphatase 98 U/L (38-126); Anion Gap 8 mmol/L; Blood Urea Nitrogen 14 mg/dL (7-17); Calcium 9.5 mg/dL (8.4-10.2); Carbon Dioxide 28 mmol/L (22-30); Chloride 105 mmol/L (98-107); Cholesterol 267 mg/dL (<200); Globulin 3.2 g/dL; Glucose 102 mg/dL (74-99); HDL Cholesterol 46 mg/dL (40-60); LDL Cholesterol,Calculated 191 mg/dL (0-99); Non-African American GFR(CKD) >90 (>60 ml/min/1.73 sqM); Potassium 4.2 mmol/L (3.5-5.1); Sodium 141 mmol/L (137-145); Total Bilirubin 0.4 mg/dL (0.2-1.3); Total Protein 7.5 g/dL (6.3-8.2); Triglycerides 150 mg/dL (<150)
[2020-08-09 14:03] LABS: T4, Free (Free Thyroxine) 1.04 ng/dL (0.78-2.19)
== END | disposition home or self-care (01) ==
LOC: LABWHC1 12:17
PROVIDERS: ATTEND Nurse Practitioner Women's Health
DX: Z00.00 Encounter for general adult medical examination without abnormal findings (principal); Z13.21 Encounter for screening for nutritional disorder; E78.00 Pure hypercholesterolemia, unspecified; I10 Essential (primary) hypertension; Z79.899 Other long term (current) drug therapy
CPT/HCPCS: 36415; 80053; 80061; 82306; 84439; 84443; 85025; 86803

== ENCOUNTER → 2020-09-09 | Outpatient (CLI) | payer BC ==
--- NOTE | 2020-09-10 08:09 | US ---
EXAMINATION TYPE: US carotid duplex BILAT DATE OF EXAM: 09/09/2020 COMPARISON: NONE CLINICAL HISTORY: 59-year-old female H81.4 Vertigo. Dizziness TECHNIQUE: Carotid duplex ultrasound examination. Indirect Doppler criteria was utilized. FINDINGS: EXAM MEASUREMENTS: RIGHT: Peak Systolic Velocity (PSV) cm/sec ----- Right CCA: 73.2 ----- Right ICA: 96.3 ----- Right ECA: 89.7 ICA/CCA ratio: 1.3 RIGHT: End Diastole cm/sec ----- Right CCA: 22.6 ----- Right ICA: 38.0 ----- Right ECA: 16.0 LEFT: Peak Systolic Velocity (PSV) cm/sec ----- Left CCA: 66.8 ----- Left ICA: 110.6 ----- Left ECA: 122.5 ICA/CCA ratio: 1.7 LEFT: End Diastole cm/sec ----- Left CCA: 20.6 ----- Left ICA: 54.5 ----- Left ECA: 22.0 VERTEBRALS (direction of flow): Right Vertebral: Antegrade Left Vertebral: Antegrade Rhythm: Normal Drilling Supervisor notes: Minimal plaque bilateral bifurcations. No evidence of increased velocities. No dom dence of significant stenosis IMPRESSION: No hemodynamically significant ICA stenosis on either side. Criteria for Assigning % of Stenosis / Diameter reduction (Estimation based on the indirect measurements of the internal carotid artery velocities (ICA PSV). 1. Normal (no stenosis)=ICA PSV < 125 cm/s: ratio < 2.0: ICA EDV<40 cm/s. 2. Less than 50% stenosis=ICA PSV < 125 cm/s: ratio < 2.0: ICA EDV<40 cm/s. 3. 50 to 69% stenosis=ICA PSV of 125 to 230 cm/s: ration 2.0 ? 4.0: ICA EDV 40-100 cm/s. 4. Greater than 70% stenosis to near occlusion= ICA PSV > 230 cm/s: ratio > 4.0: ICA EDV > 100 cm/s. 5. Near occlusion= ICA PSV velocities may be low or undetectable: variable ratio and ICA EDV. 6. Total occlusion=unable to detect flow.
== END | disposition home or self-care (01) ==
LOC: RADUSWWP 16:03
PROVIDERS: ATTEND Family Medicine
DX: R42 Dizziness and giddiness (principal)
CPT/HCPCS: 93880

== ENCOUNTER → 2020-11-15 | Outpatient (CLI) | payer BC ==
--- NOTE | 2020-11-15 12:30 | US ---
EXAMINATION TYPE: US transvaginal DATE OF EXAM: 11/15/2020 COMPARISON: US 2013 CLINICAL HISTORY: 59-year-old female N83.20; N85.2; Bilateral lower quadrant pain. Pelvic pressure, g ravida 1, para 1, history of TECHNIQUE: Transvaginal exam only per ordering physician. Date of LMP: 6 to 7 years ago FINDINGS: EXAM MEASUREMENTS: Uterus: 5.9 x 2.4 x 3.4 cm Endometrial Stripe: 0.2 cm Right Ovary: 1.3 x 0.7 x 1.2 cm Left Ovary: 2.0 x 1.2 x 1.2 cm 1. Uterus: Anteverted. The myometrium is mildly heterogeneous, 1.3 x 1.4 x 1.3cm hypoechoic mass loc ated above the uterine fundus, possible pedunculated fibroid 2. Endometrium: wnl 3. Right Ovary: wnl 4. Left Ovary: wnl 5. Bilateral Adnexa: wnl 6. Posterior cul-de-sac: wnl IMPRESSION: 1. Normal endometrial stripe at 2 mm for a postmenopausal female. 2. A 1.4 cm round mass located above the uterine fundus, possible pedunculated fibroid. Consider fema le pelvic MRI to confirm. 3. Small postmenopausal ovaries. No pelvic free fluid.
== END | disposition home or self-care (01) ==
LOC: RADUSWWP 09:40
PROVIDERS: ATTEND Family Medicine
DX: N83.201 Unspecified ovarian cyst, right side (principal); N85.2 Hypertrophy of uterus
CPT/HCPCS: 76830

== ENCOUNTER 2021-03-04 20:51 | Emergency (ER) | payer BC ==
[2021-03-04 21:10] VITALS: TEMP 98.7
[2021-03-04] MEDS ORDERED: SODIUM CHLORIDE 0.9% 500 ML 500 ML IV STA (21:21)
[2021-03-04 21:52] LABS: Basophils # (A) 0.1 k/uL (0-0.2); Basophils % (A) 1 %; Eosinophils # (A) 0.1 k/uL (0-0.7); Eosinophils % (A) 1 %; HCT 42.2 % (34.0-46.0); HGB 14.1 gm/dL (11.4-16.0); Lymphocytes # (A) 2.6 k/uL (1.0-4.8); Lymphocytes % (A) 26 %; MCH 28.9 pg (25.0-35.0); MCHC 33.5 g/dL (31.0-37.0); MCV 86.4 fL (80.0-100.0); Mean Platelet Volume 8.4; Monocytes # (A) 0.4 k/uL (0-1.0); Monocytes % (A) 4 %; Neutrophils # (A) 6.5 k/uL (1.3-7.7); Neutrophils % (A) 66 %; Platelet Count 145 k/uL (150-450); RBC 4.88 m/uL (3.80-5.40); RDW 13.8 % (11.5-15.5); WBC 9.8 k/uL (3.8-10.6)
[2021-03-04 22:03] LABS: ALT 16 U/L (4-34); AST 19 U/L (14-36); African American GFR (CKD) >90 (>60 ml/min/1.73 sqM); Albumin 4.5 g/dL (3.5-5.0); Alkaline Phosphatase 105 U/L (38-126); Anion Gap 12 mmol/L; Blood Urea Nitrogen 17 mg/dL (7-17); Calcium 9.1 mg/dL (8.4-10.2); Carbon Dioxide 24 mmol/L (22-30); Chloride 103 mmol/L (98-107); Glucose 124 mg/dL (74-99); Non-African American GFR(CKD) >90 (>60 ml/min/1.73 sqM); Potassium 3.5 mmol/L (3.5-5.1); Sodium 139 mmol/L (137-145); Total Bilirubin 0.4 mg/dL (0.2-1.3); Total Protein 7.8 g/dL (6.3-8.2)
--- NOTE | 2021-03-04 22:03 | ED ---
General Adult HPI - General Chief complaint: Weakness Stated complaint: Tachycardia, dizziness Time Seen by Provider: 03/04/21 21:06 Source: patient, EMS Mode of arrival: EMS Limitations: no limitations - History of Present Illness Initial comments: 60 year-old female patient presents to the emergency department for evaluation of weakness, dizziness, and feeling shaky. States she was walking down a hallway when her symptoms started suddenly. States she became concerned when it did not subside so she called an ambulance. She states she felt like her heart beat was fast. States she did have some anxiety onset after her symptoms started due to having a previous heart attack. States she is having some chest tightness. Denies any pain radiating down the arms, into the neck, or jaw. She denies any numbness, tingling to her extremities. States she did become nauseous in the ambulance but that is resolved. Denies any headache, blurred vision, double vision. - Related Data Home Medications Medication Instructions Recorded Confirmed Aspirin EC [Ecotrin Low Dose] 81 mg PO DAILY 12/14/15 03/04/21 Atorvastatin [Lipitor] 40 mg PO Q3D 03/04/21 03/04/21 Metoprolol Tartrate [Lopressor] 25 mg PO DAILY 03/04/21 03/04/21 Allergies Allergy/AdvReac Type Severity Reaction Status Date / Time gluten Allergy Rash/Hives Verified 03/04/21 23:39 diphenhydramine AdvReac Severe paradoxical Verified 03/04/21 23:39 excitation metoclopramide HCl AdvReac Unknown Verified 03/04/21 23:39 [From Reglan] Opioids - Morphine Analogues AdvReac patient Verified 03/04/21 23:39 does not want Opioids-Meperidine and AdvReac patient Verified 03/04/21 23:39 Related does not [Opioids-Meperidine & want Related] Opioids-Methadone and Related AdvReac patient Verified 03/04/21 23:39 [Opioids-Methadone & Related] does not want Review of Systems ROS Statement: Those systems with pertinent positive or pertinent negative responses have been documented in the HPI. ROS Other: All systems not noted in ROS Statement are negative. Past Medical History Past Medical History: Chest Pain / Angina, GERD/Reflux, Hyperlipidemia, Myocard ial Infarction ([place]) Additional Past Medical History / Comment(s): GLUTEN ALLERGY,ANEMIA, "HEADACHES", RLS Last Myocardial Infarction Date:: 12/02/2015 History of Any Multi-Drug Resistant Organisms: None Reported Past Surgical History: Section, Heart Catheterization Additional Past Surgical History / Comment(s): DENTAL IMPLANTS Past Anesthesia/Blood Transfusion Reactions: Motion Sickness Additional Past Anesthesia/Blood Transfusion Reaction / Comment(s): CLAUSTERPHOBIA Past Psychological History: Anxiety Past Alcohol Use History: None Reported Past Drug Use History: None Reported - Past Family History Father Family Medical History: Congestive Heart Failure (CHF), CVA/TIA, Diabetes Mellitus Additional Family Medical History / Comment(s): smoker Mother Family Medical History: Diabetes Mellitus Additional Family Medical History / Comment(s): OBESITY General Exam Limitations: no limitations General appearance: alert, in no apparent distress, other (this is a well- developed, well-nourished adult female in no acute distress.) ENT exam: Present: normal exam, normal oropharynx, mucous membranes moist Respiratory exam: Present: normal lung sounds bilaterally. Absent: respiratory distress, wheezes, rales, rhonchi, stridor Cardiovascular Exam: Present: regular rate, normal rhythm, normal heart sounds. Absent: systolic murmur, diastolic murmur, rubs, gallop, clicks GI/Abdominal exam: Present: soft, normal bowel sounds. Absent: distended, tenderness, guarding, rebound, rigid Neurological exam: Present: alert, oriented X3, CN II-XII intact Psychiatric exam: Present: normal affect, normal mood Skin exam: Present: warm, dry, intact, normal color. Absent: rash Course Vital Signs 03/04/21 03/04/21 03/05/21 21:08 23:10 00:37 Temperature 98.7 F Pulse Rate 102 H 74 68 Respiratory 16 18 18 Rate Blood Pressure 144/82 133/97 134/87 O2 Sat by Pulse 98 100 98 Oximetry EKG Findings - EKG Comments: EKG Findings:: EKG obtained at 2210 shows normal sinus rhythm with a ventricular rate of 93, NV interval 148, QRS duration 84, QT 380, QTc 472. No evidence of ST elevation or depression. Medical Decision Making - Medical Decision Making 60-year-old female patient presents to the emergency department today for evaluation of dizziness, weakness, racing heart. Physical examination was unremarkable. Labs reviewed and are unremarkable. Chest x-ray negative. EKG is unremarkable. I did discuss findings and results with her. She is feeling better at this time. She will be discharged follow up with her primary care physician for recheck in 1-2 days. She is instructed to discuss Holter monitor she continues to have these symptoms. Return parameters were discussed in detail. She verbalizes understanding and agrees with this plan. My attending is Dr. Shearer. - Lab Data Result diagrams: 03/04/21 21:41 03/04/21 21:41 Lab Results 03/04/21 03/04/21 03/04/21 Range/Units 21:41 21:41 21:41 WBC 9.8 (3.8-10.6) k/uL RBC 4.88 (3.80-5.40) m/uL Hgb 14.1 (11.4-16.0) gm/dL Hct 42.2 (34.0-46.0) % MCV 86.4 (80.0-100.0) fL MCH 28.9 (25.0-35.0) pg MCHC 33.5 (31.0-37.0) g/dL RDW 13.8 (11.5-15.5) % Plt Count 145 L (150-450) k/uL MPV 8.4 Neutrophils % 66 % Lymphocytes % 26 % Monocytes % 4 % Eosinophils % 1 % Basophils % 1 % Neutrophils # 6.5 (1.3-7.7) k/uL Lymphocytes # 2.6 (1.0-4.8) k/uL Monocytes # 0.4 (0-1.0) k/uL Eosinophils # 0.1 (0-0.7) k/uL Basophils # 0.1 (0-0.2) k/uL D-Dimer 0.46 (<0.60) mg/L FEU Sodium (137-145) mmol/L Potassium (3.5-5.1) mmol/L Chloride (98-107) mmol/L Carbon Dioxide (22-30) mmol/L Anion Gap mmol/L BUN (7-17) mg/dL Creatinine (0.52-1.04) mg/dL Est GFR (CKD-EPI)AfAm (>60 ml/min/1.73 sqM) Est GFR (CKD-EPI)NonAf (>60 ml/min/1.73 sqM) Glucose (74-99) mg/dL Calcium (8.4-10.2) mg/dL Total Bilirubin (0.2-1.3) mg/dL AST (14-36) U/L ALT (4-34) U/L Alkaline Phosphatase (38-126) U/L Troponin I (0.000-0.034) ng/mL Total Protein (6.3-8.2) g/dL Albumin (3.5-5.0) g/dL Urine Color Yellow Urine Appearance Cloudy H (Clear) Urine pH 7.0 (5.0-8.0) Ur Specific [place] 1.026 (1.001-1.035) Urine Protein Trace H (Negative) Urine Glucose (UA) Negative (Negative) Urine Ketones Negative (Negative) Urine Blood Negative (Negative) Urine Nitrite Negative (Negative) Urine Bilirubin Negative (Negative) Urine Urobilinogen <2.0 (<2.0) mg/dL Ur Leukocyte Esterase Small H (Negative) Urine RBC 2 (0-5) /hpf Urine WBC 4 (0-5) /hpf Ur Squamous Epith Cells 6 H (0-4) /hpf Urine Bacteria Rare H (None) /hpf Urine Mucus Few H (None) /hpf 03/04/21 03/04/21 Range/Units 21:41 21:41 WBC (3.8-10.6) k/uL RBC (3.80-5.40) m/uL Hgb (11.4-16.0) gm/dL Hct (34.0-46.0) % MCV (80.0-100.0) fL MCH (25.0-35.0) pg MCHC (31.0-37.0) g/dL RDW (11.5-15.5) % Plt Count (150-450) k/uL MPV Neutrophils % % Lymphocytes % % Monocytes % % Eosinophils % % Basophils % % Neutrophils # (1.3-7.7) k/uL Lymphocytes # (1.0-4.8) k/uL Monocytes # (0-1.0) k/uL Eosinophils # (0-0.7) k/uL Basophils # (0-0.2) k/uL D-Dimer (<0.60) mg/L FEU Sodium 139 (137-145) mmol/L Potassium 3.5 (3.5-5.1) mmol/L Chloride 103 (98-107) mmol/L Carbon Dioxide 24 (22-30) mmol/L Anion Gap 12 mmol/L BUN 17 (7-17) mg/dL Creatinine 0.49 L (0.52-1.04) mg/dL Est GFR (CKD-EPI)AfAm >90 (>60 ml/min/1.73 sqM) Est GFR (CKD-EPI)NonAf >90 (>60 ml/min/1.73 sqM) Glucose 124 H (74-99) mg/dL Calcium 9.1 (8.4-10.2) mg/dL Total Bilirubin 0.4 (0.2-1.3) mg/dL AST 19 (14-36) U/L ALT 16 (4-34) U/L Alkaline Phosphatase 105 (38-126) U/L Troponin I <0.012 (0.000-0.034) ng/mL Total Protein 7.8 (6.3-8.2) g/dL Albumin 4.5 (3.5-5.0) g/dL Urine Color Urine Appearance (Clear) Urine pH (5.0-8.0) Ur Specific [place] (1.001-1.035) Urine Protein (Negative) Urine Glucose (UA) (Negative) Urine Ketones (Negative) Urine Blood (Negative) Urine Nitrite (Negative) Urine Bilirubin (Negative) Urine Urobilinogen (<2.0) mg/dL Ur Leukocyte Esterase (Negative) Urine RBC (0-5) /hpf Urine WBC (0-5) /hpf Ur Squamous Epith Cells (0-4) /hpf Urine Bacteria (None) /hpf Urine Mucus (None) /hpf - Radiology Data Radiology results: report reviewed, image reviewed 2 views of the chest are obtained. Report was reviewed in its entirety. Impression by Dr. Samuel shows mild subsegmental atelectasis appears new compared to old exam. Normal heart. Disposition Clinical Impression: Weakness, Dizziness Disposition: HOME SELF-CARE Condition: Good Instructions (If sedation given, give patient instructions): Weakness (ED), Dizziness (ED) Additional Instructions: Pop with her primary care physician for recheck in 1-2 days. Return for any new, worsening, or concerning symptoms. Is patient prescribed a controlled substance at d/c from ED?: No Referrals: Félix Corona Jr, [Primary Care Provider] - 1-2 days Time of Disposition: 00:27
[2021-03-04 23:03] LABS: Appearance,Urine Cloudy (Clear); Bacteria,Urine Rare /hpf; Bilirubin,Urine Negative (Negative); Blood,Urine Negative (Negative); Color,Urine Yellow; Glucose,Urine (UA) Negative (Negative); Ketones,Urine Negative (Negative); Leukocyte Esterase,Urine Small (Negative); Mucus,Urine Few /hpf; Nitrite,Urine Negative (Negative); Protein,Urine Trace (Negative); RBC,Urine 2 /hpf (0-5); Specific Gravity,Urine 1.026 (1.001-1.035); Squamous Epithelial Cell,Urine 6 /hpf (0-4); Urobilinogen,Urine <2.0 mg/dL (<2.0); WBC,Urine 4 /hpf (0-5)
[2021-03-04 23:13] VITALS: RESP 18
--- NOTE | 2021-03-04 23:28 | XR ---
EXAMINATION TYPE: XR chest 2V DATE OF EXAM: 03/04/2021 COMPARISON: 11/19/2018 HISTORY: Tachycardia TECHNIQUE: 2 view FINDINGS: There is some mild subsegmental atelectasis in the lower lung pineda. Heart and mediastinum are normal. There are chest leads. There are no hilar masses. There is no pleural effusion. Bony tho rax is intact. IMPRESSION: Mild subsegmental atelectasis appears new compared to old exam. Normal heart.
[2021-03-05 00:39] VITALS: BP 134/87; PULSE 68
== END 2021-03-05 00:38 | disposition home or self-care (01) ==
LOC: EC 20:51
DX: R53.1 Weakness (principal); R42 Dizziness and giddiness; I25.2 Old myocardial infarction; E78.5 Hyperlipidemia, unspecified; K21.9 Gastro-esophageal reflux disease without esophagitis; Z79.82 Long term (current) use of aspirin; Z79.899 Other long term (current) drug therapy
CPT/HCPCS: 36415; 71046; 80053; 81001; 84484; 85025; 85379; 93005; 99285

== ENCOUNTER → 2021-05-12 | Outpatient (CLI) | payer BC | END | disposition home or self-care (01) | LOC: LABWHC1 15:04 | PROVIDERS: ATTEND Nurse Practitioner Family | DX: R07.89 Other chest pain (principal) | CPT/HCPCS: 36415; 84484 ==

== ENCOUNTER → 2022-09-01 | Outpatient (CLI) | payer BC ==
--- NOTE | 2022-09-01 17:39 | CA ---
Transthoracic Echo Report Name: Megan Wilson Age: 61 Gender: F : 1960 Exam Date: 09/01/2022 13:39 Exam Location: [facility] Ht (in): 67 Wt (lb): 240 Ordering Physician: Cleveland Solorio MD Attending/Referring Phys: Shawna Turcios Tariff Compiler Bonnie Cherry RDCS Procedure CPT: Indications: R07.9 CHEST PAIN, UNSPECIFIED Cardiac Hx: Technical Quality: Good Contrast 1: Total Dose (mL): Contrast 2: Total Dose (mL): MEASUREMENTS (Male / Female) Normal Values 2D ECHO LV Diastolic Diameter PLAX 4.0 cm 4.2 - 5.9 / 3.9 - 5.3 cm LV Systolic Diameter PLAX 3.0 cm IVS Diastolic Thickness 1.1 cm 0.6 - 1.0 / 0.6 - 0.9 cm LVPW Diastolic Thickness 1.1 cm 0.6 - 1.0 / 0.6 - 0.9 cm LV Relative Wall Thickness 0.6 RV Internal Dim ED PLAX 3.0 cm LA Systolic Diameter LX 3.8 cm 3.0 - 4.0 / 2.7 - 3.8 cm LV Diastolic Volume MOD BP 116.2 cm??? 67 - 155 / 56 - 104 cm??? LV Systolic Volume MOD BP 49.3 cm??? 22 - 58 / 19 - 49 cm??? LV Ejection Fraction MOD BP 57.5 % >= 55 % LV Diastolic Volume MOD 4C 124.6 cm??? LV Systolic Volume MOD 4C 54.7 cm??? LV Ejection Fraction MOD 4C 56.1 % LV Diastolic Length 4C 8.3 cm LV Systolic Length 4C 6.9 cm LV Diastolic Volume MOD 2C 102.6 cm??? LV Systolic Volume MOD 2C 43.6 cm??? LV Ejection Fraction MOD 2C 57.5 % LV Diastolic Length 2C 7.8 cm LV Systolic Length 2C 7.2 cm LA Volume 75.7 cm??? 18 - 58 / 22 - 52 cm??? M-MODE Aortic Root Diameter MM 3.0 cm AV Cusp Separation MM 2.1 cm DOPPLER AV Peak Velocity 170.4 cm/s AV Peak Gradient 11.6 mmHg MV Area PHT 3.0 cm??? Mitral E Point Velocity 104.9 cm/s Mitral A Point Velocity 89.5 cm/s Mitral E to A Ratio 1.2 MV Deceleration Time 255.8 ms MV E' Velocity 7.9 cm/s Mitral E to MV E' Ratio 13.3 TR Peak Velocity 217.2 cm/s TR Peak Gradient 18.9 mmHg Right Ventricular Systolic Press 22.9 mmHg FINDINGS Left Ventricle Left ventricular ejection fraction is estimated at 50-55 %. Left ventricular cavity size normal. Normal left ventricular wall motion. Mildly increased septal wall thickness. Mildly increased posterior wall thickness. Mildly increased left ventricular diastolic volume. Right Ventricle Normal right ventricular size and function, right ventricular systolic pressure within normal limits. Right Atrium Normal right atrial size. Left Atrium Severely increased left atrial volume. Mildly increased left atrial area. Mitral Valve Structurally normal mitral valve. No mitral stenosis, regurgitation or prolapse. Aortic Valve Trileaflet aortic valve. No aortic valve stenosis or regurgitation. Tricuspid Valve Structurally normal tricuspid valve. Mild tricuspid regurgitation. Pulmonic Valve Structurally normal pulmonic valve. Trace pulmonic regurgitation. Pericardium Normal pericardium. No pericardial effusion. Aorta Normal size aortic root and proximal ascending aorta. CONCLUSIONS Normal LV systolic function Mild tricuspid regurgitation Previewed by: Dr. Segundo Bergman MD (Electronically Signed) Final Date: 01 September 2022 17:38
== END | disposition home or self-care (01) ==
LOC: RADECHMAIN 13:34
PROVIDERS: ATTEND Family Medicine
DX: I36.1 Nonrheumatic tricuspid (valve) insufficiency (principal); R07.9 Chest pain, unspecified
CPT/HCPCS: 93306

== ENCOUNTER 2023-07-03 16:55 | Emergency (ER) | payer BC ==
[2023-07-03 17:12] VITALS: PULSE 89
--- NOTE | 2023-07-03 17:23 | ED ---
Abdominal Pain HPI - General Chief Complaint: Abdominal Pain Stated Complaint: Back/Groin Pain Time Seen by Provider: 07/03/23 17:21 Source: patient, RN notes reviewed Mode of arrival: ambulatory Limitations: no limitations - History of Present Illness Initial Comments: 62-year-old female presenting to the ER with a chief complaint of left flank and lower abdominal pain. She states this pain started about a couple hours ago and is constant in nature. She describes it as a knife cutting through her flank. She does have a history significant for kidney stones. She reports she has not been able to the bathroom much since then. Endorses nausea and chills but denies known fevers or vomiting. Denies any hematuria, constipation, diarrhea, peripheral edema, chest pain, shortness of breath. - Related Data Home Medications Medication Instructions Recorded Confirmed Aspirin EC [Ecotrin Low Dose] 81 mg PO DAILY 12/14/15 03/04/21 Atorvastatin [Lipitor] 40 mg PO Q3D 03/04/21 03/04/21 Metoprolol Tartrate [Lopressor] 25 mg PO DAILY 03/04/21 03/04/21 Previous Rx's Medication Instructions Recorded Ketorolac [Toradol] 10 mg PO Q8HR #15 tab 07/03/23 Ondansetron Odt [Zofran Odt] 4 mg PO Q8HR PRN #10 tab 07/03/23 Tamsulosin [Flomax] 0.4 mg PO DAILY #7 cap 07/03/23 Allergies Allergy/AdvReac Type Severity Reaction Status Date / Time gluten Allergy Rash/Hives Verified 03/04/21 23:39 diphenhydramine AdvReac Severe paradoxical Verified 03/04/21 23:39 excitation metoclopramide HCl AdvReac Unknown Verified 03/04/21 23:39 [From Reglan] Opioids - Morphine Analogues AdvReac patient Verified 03/04/21 23:39 does not want Opioids-Meperidine and AdvReac patient Verified 03/04/21 23:39 Related does not [Opioids-Meperidine & want Related] Opioids-Methadone and Related AdvReac patient Verified 03/04/21 23:39 [Opioids-Methadone & Related] does not want Review of Systems ROS Statement: Those systems with pertinent positive or pertinent negative responses have been documented in the HPI. ROS Other: All systems not noted in ROS Statement are negative. Past Medical History Past Medical History: Chest Pain / Angina, GERD/Reflux, Hyperlipidemia, Myocardial Infarction (SD) Additional Past Medical History / Comment(s): GLUTEN ALLERGY,ANEMIA, "HEADACHES", RLS Last Myocardial Infarction Date:: 12/02/2015 History of Any Multi-Drug Resistant Organisms: None Reported Past Surgical History: Section, Heart Catheterization Additional Past Surgical History / Comment(s): DENTAL IMPLANTS Past Anesthesia/Blood Transfusion Reactions: Motion Sickness Additional Past Anesthesia/Blood Transfusion Reaction / Comment(s): CLAUSTERPHOBIA Past Psychological History: Anxiety Past Alcohol Use History: None Reported Past Drug Use History: None Reported - Past Family History Father Family Medical History: Congestive Heart Failure (CHF), CVA/TIA, Diabetes Mellitus Additional Family Medical History / Comment(s): smoker Mother Family Medical History: Diabetes Mellitus Additional Family Medical History / Comment(s): OBESITY General Exam Limitations: no limitations General appearance: alert, other (Patient pacing room and unable to find a comfortable position. Bending over bed with forearms on bed) Head exam: Present: atraumatic, normocephalic, normal inspection Eye exam: Present: normal appearance, PERRL, EOMI. Absent: scleral icterus, conjunctival injection, periorbital swelling Respiratory exam: Present: normal lung sounds bilaterally. Absent: respiratory distress, wheezes, rales, rhonchi, stridor Cardiovascular Exam: Present: regular rate, normal rhythm, normal heart sounds GI/Abdominal exam: Present: soft, tenderness (Left lower quadrant), normal bowel sounds Back exam: Present: CVA tenderness (L) Neurological exam: Present: alert, oriented X3, CN II-XII intact Psychiatric exam: Present: normal affect, normal mood Skin exam: Present: warm, dry, intact, normal color. Absent: rash Course Vital Signs 07/03/23 16:58 Temperature 97.6 F Pulse Rate 89 Respiratory 20 Rate Blood Pressure 169/95 O2 Sat by Pulse 98 Oximetry Medical Decision Making - Medical Decision Making Was pt. sent in by a medical professional or institution (, PA, SAMPLE CLERK, urgent care, hospital, or [facility]...) When possible be specific @ -No Did you speak to anyone other than the patient for history (EMS, parent, family, police, friend...)? What history was obtained from this source @ -No Did you review nursing and triage notes (agree or disagree)? Why? @ -I reviewed and agree with nursing and triage notes Were old charts reviewed (outside hosp., previous admission, EMS record, old EKG, old radiological studies, urgent care reports/EKG's, [facility] records)? Report findings @ -No old charts were reviewed Differential Diagnosis (chest pain, altered mental status, abdominal pain women, abdominal pain men, vaginal bleeding, weakness, fever, dyspnea, syncope, hea dache, dizziness, GI bleed, back pain, seizure, CVA, palpatations, mental health, musculoskeletal)? @ -Differential Abdominal Pain Women:Appendicitis, Cholecystitis, diverticulosis, ischemic bowel, pancreatitis, hepatitis, UTI, gastroenteritis, AAA, incarcerated hernia, bowel obstruction, constipation, inflammatory bowel, hepatitis, peptic ulcer disease, splenic infarction, perforated viscus, vu lvitis, ovarian torsion, PID, kidney stone, placenta abruption, this is not meant to be an all-inclusive list EKG interpreted by me (3pts min.). @ -None X-rays interpreted by me (1pt min.). @ -None done CT interpreted by me (1pt min.). @ -CT abdomen pelvis significant for distal left ureteral calculus measuring 7.5 mm resulting in moderate hydronephrosis. Left renal edema and perinephric stranding. Calculus is approximately 7 cm from left UVJ. U/S interpreted by me (1pt. min.). @ -None done What testing was considered but not performed or refused? (CT, X-rays, U/S, labs)? Why? @ -None What meds were considered but not given or refused? Why? @ -Patient refused [place] for outpatient pain control. Did you discuss the management of the patient with other professionals (professionals i.e. , PA, SAMPLE CLERK, lab, RT, psych nurse, high school social science teacher, secretary specialist, teacher, parking enforcement officer, case specialist)? Give summary @ -No Was smoking cessation discussed for >3mins.? @ -No Was critical care preformed (if so, how long)? @ -No Were there social determinants of health that impacted care today? How? (H omelessness, low income, unemployed, alcoholism, drug addiction, transportation, low edu. Level, literacy, decrease access to med. care, detention, rehab)? @ -No Was there de-escalation of care discussed even if they declined (Discuss DNR or withdrawal of care, Hospice)? DNR status @ -No What co-morbidities impacted this encounter? (DM, HTN, Smoking, COPD, CAD, Cancer, CVA, ARF, Chemo, Hep., AIDS, mental health diagnosis, sleep apnea, morbid obesity)? @ -Obese/history of nephrolithiasis Was patient admitted / discharged? Hospital course, mention meds given and route, prescriptions, significant lab abnormalities, going to OR and other pertinent info. @ -Discharge. Patient is a 62-year-old female presenting to the ER with chief complaint of left flank pain. History and physical exam completed. Vitals stable. Upon exam, patient pacing in exam room unable to find comfortable position. Nontoxic-appearing. Significant left CVA tenderness. Labs obtained significant for a white blood cell count of 13.2 otherwise unimpressive. Hemorrhagic urine with greater than 182 red blood cells and moderate blood. CT abdomen pelvis significant for 7.5 mm obstructing calculus with moderate hydronephrosis. Patient received IV fluids, Toradol and Zofran in the ER with improvement of her symptoms. Results discussed with patient, all questions answered. Admission was considered due to size of stone and pain control. Patient refused and stated she would like to go home. Flomax, Zofran, Toradol prescribed. I advised patient to follow-up with urology in the next 1 to 2 days, referral given. Strict return parameters discussed. Patient discharged stable condition with follow-up to urology/PCP. Patient verbally expressed understanding and agreement with care plan. Case discussed with ED attending, Dr. Shearer. Undiagnosed new problem with uncertain prognosis? @ -No Drug Therapy requiring intensive monitoring for toxicity (Heparin, Nitro, Insulin, Cardizem)? @ -No Were any procedures done? @ -No Diagnosis/symptom? @ -Ureterolithiasis Acute, or Chronic, or Acute on Chronic? @ -Acute Uncomplicated (without systemic symptoms) or Complicated (systemic symptoms)? @ -Uncomplicated Side effects of treatment? @ -No Exacerbation, Progression, or Severe Exacerbation? @ -No Poses a threat to life or bodily function? How? (Chest pain, USA, SD, pneumonia, PE, COPD, DKA, ARF, appy, cholecystitis, CVA, Diverticulitis, Homicidal, Suicidal, threat to staff... and all critical care pts) @ -No - Lab Data Result diagrams: 07/03/23 17:08 07/03/23 17:08 Lab Results 07/03/23 07/03/23 07/03/23 Range/Units 17:08 17:08 17:08 WBC 13.2 H (3.8-10.6) k/uL RBC 4.60 (3.80-5.40) m/uL Hgb 13.2 (11.4-16.0) gm/dL Hct 40.4 (34.0-46.0) % MCV 87.9 (80.0-100.0) fL MCH 28.8 (25.0-35.0) pg MCHC 32.7 (31.0-37.0) g/dL RDW 13.5 (11.5-15.5) % Plt Count 358 (150-450) k/uL MPV 6.9 Neutrophils % 79 % Lymphocytes % 16 % Monocytes % 4 % Eosinophils % 1 % Basophils % 0 % Neutrophils # 10.4 H (1.3-7.7) k/uL Lymphocytes # 2.1 (1.0-4.8) k/uL Monocytes # 0.5 (0-1.0) k/uL Eosinophils # 0.1 (0-0.7) k/uL Basophils # 0.1 (0-0.2) k/uL Sodium 142 (137-145) mmol/L Potassium 3.9 (3.5-5.1) mmol/L Chloride 109 H (98-107) mmol/L Carbon Dioxide 22 (22-30) mmol/L Anion Gap 11 mmol/L BUN 15 (7-17) mg/dL Creatinine 0.49 L (0.52-1.04) mg/dL Est GFR (CKD-EPI)AfAm >90 (>60 ml/min/1.73 sqM) Est GFR (CKD-EPI)NonAf >90 (>60 ml/min/1.73 sqM) Glucose 152 H (74-99) mg/dL Plasma Lactic Acid Bryan (0.7-2.0) mmol/L Calcium 9.2 (8.4-10.2) mg/dL Total Bilirubin 0.5 (0.2-1.3) mg/dL AST 19 (14-36) U/L ALT 19 (4-34) U/L Alkaline Phosphatase 96 (38-126) U/L Total Protein 7.6 (6.3-8.2) g/dL Albumin 4.3 (3.5-5.0) g/dL Urine Color Yellow Urine Appearance Cloudy H (Clear) Urine pH 5.0 (5.0-8.0) Ur Specific [place] 1.024 (1.001-1.035) Urine Protein Trace H (Negative) Urine Glucose (UA) Negative (Negative) Urine Ketones 1+ H (Negative) Urine Blood Moderate H (Negative) Urine Nitrite Negative (Negative) Urine Bilirubin Negative (Negative) Urine Urobilinogen <2.0 (<2.0) mg/dL Ur Leukocyte Esterase Negative (Negative) Urine RBC >182 H (0-5) /hpf Urine WBC 8 H (0-5) /hpf Ur Squamous Epith Cells 3 (0-4) /hpf Urine Bacteria Occasional H (None) /hpf Urine Mucus Occasional H (None) /hpf 07/03/23 Range/Units 18:03 WBC (3.8-10.6) k/uL RBC (3.80-5.40) m/uL Hgb (11.4-16.0) gm/dL Hct (34.0-46.0) % MCV (80.0-100.0) fL MCH (25.0-35.0) pg MCHC (31.0-37.0) g/dL RDW (11.5-15.5) % Plt Count (150-450) k/uL MPV Neutrophils % % Lymphocytes % % Monocytes % % Eosinophils % % Basophils % % Neutrophils # (1.3-7.7) k/uL Lymphocytes # (1.0-4.8) k/uL Monocytes # (0-1.0) k/uL Eosinophils # (0-0.7) k/uL Basophils # (0-0.2) k/uL Sodium (137-145) mmol/L Potassium (3.5-5.1) mmol/L Chloride (98-107) mmol/L Carbon Dioxide (22-30) mmol/L Anion Gap mmol/L BUN (7-17) mg/dL Creatinine (0.52-1.04) mg/dL Est GFR (CKD-EPI)AfAm (>60 ml/min/1.73 sqM) Est GFR (CKD-EPI)NonAf (>60 ml/min/1.73 sqM) Glucose (74-99) mg/dL Plasma Lactic Acid Bryan 1.6 (0.7-2.0) mmol/L Calcium (8.4-10.2) mg/dL Total Bilirubin (0.2-1.3) mg/dL AST (14-36) U/L ALT (4-34) U/L Alkaline Phosphatase (38-126) U/L Total Protein (6.3-8.2) g/dL Albumin (3.5-5.0) g/dL Urine Color Urine Appearance (Clear) Urine pH (5.0-8.0) Ur Specific [place] (1.001-1.035) Urine Protein (Negative) Urine Glucose (UA) (Negative) Urine Ketones (Negative) Urine Blood (Negative) Urine Nitrite (Negative) Urine Bilirubin (Negative) Urine Urobilinogen (<2.0) mg/dL Ur Leukocyte Esterase (Negative) Urine RBC (0-5) /hpf Urine WBC (0-5) /hpf Ur Squamous Epith Cells (0-4) /hpf Urine Bacteria (None) /hpf Urine Mucus (None) /hpf - Radiology Data Radiology results: report reviewed, image reviewed Disposition Clinical Impression: Ureterolithiasis Disposition: HOME SELF-CARE Condition: Stable Instructions (If sedation given, give patient instructions): Kidney Stones (ED) Additional Instructions: Follow-up with urology in the next 1 to 2 days. Take Flomax for 7 days. Return to the ER for any new or worsening symptoms. Prescriptions: Tamsulosin [Flomax] 0.4 mg PO DAILY #7 cap Ketorolac [Toradol] 10 mg PO Q8HR #15 tab Ondansetron Odt [Zofran Odt] 4 mg PO Q8HR PRN #10 tab PRN Reason: Nausea Is patient prescribed a controlled substance at d/c from ED?: No Referrals: Cleveland Solorio MD [Primary Care Provider] - 1-2 days Chucho Hernandez MD [STAFF PHYSICIAN] - 1-2 days Time of Disposition: 18:32
[2023-07-03 17:26] LABS: Basophils # (A) 0.1 k/uL (0-0.2); Basophils % (A) 0 %; Eosinophils # (A) 0.1 k/uL (0-0.7); Eosinophils % (A) 1 %; HCT 40.4 % (34.0-46.0); HGB 13.2 gm/dL (11.4-16.0); Lymphocytes # (A) 2.1 k/uL (1.0-4.8); Lymphocytes % (A) 16 %; MCH 28.8 pg (25.0-35.0); MCHC 32.7 g/dL (31.0-37.0); MCV 87.9 fL (80.0-100.0); Mean Platelet Volume 6.9; Monocytes # (A) 0.5 k/uL (0-1.0); Monocytes % (A) 4 %; Neutrophils # (A) 10.4 k/uL (1.3-7.7); Neutrophils % (A) 79 %; Platelet Count 358 k/uL (150-450); RDW 13.5 % (11.5-15.5); WBC 13.2 k/uL (3.8-10.6)
[2023-07-03] MEDS: KETOROLAC 15 MG/ML 1 ML VIAL IVP STA (17:32)
[2023-07-03] MEDS: ONDANSETRON 4 MG/2 ML VIAL IVP STA (17:32)
[2023-07-03] MEDS: SODIUM CHLORIDE 0.9% 1,000 ML IV STA (17:35)
[2023-07-03 17:40] LABS: ALT 19 U/L (4-34); AST 19 U/L (14-36); African American GFR (CKD) >90 (>60 ml/min/1.73 sqM); Albumin 4.3 g/dL (3.5-5.0); Alkaline Phosphatase 96 U/L (38-126); Anion Gap 11 mmol/L; Blood Urea Nitrogen 15 mg/dL (7-17); Calcium 9.2 mg/dL (8.4-10.2); Carbon Dioxide 22 mmol/L (22-30); Chloride 109 mmol/L (98-107); Glucose 152 mg/dL (74-99); Non-African American GFR(CKD) >90 (>60 ml/min/1.73 sqM); Potassium 3.9 mmol/L (3.5-5.1); Sodium 142 mmol/L (137-145); Total Bilirubin 0.5 mg/dL (0.2-1.3); Total Protein 7.6 g/dL (6.3-8.2)
[2023-07-03 17:53] LABS: Appearance,Urine Cloudy (Clear); Bacteria,Urine Occasional /hpf; Bilirubin,Urine Negative (Negative); Blood,Urine Moderate (Negative); Color,Urine Yellow; Glucose,Urine (UA) Negative (Negative); Ketones,Urine 1+ (Negative); Leukocyte Esterase,Urine Negative (Negative); Mucus,Urine Occasional /hpf; Nitrite,Urine Negative (Negative); Protein,Urine Trace (Negative); RBC,Urine >182 /hpf (0-5); Specific Gravity,Urine 1.024 (1.001-1.035); Squamous Epithelial Cell,Urine 3 /hpf (0-4); Urobilinogen,Urine <2.0 mg/dL (<2.0); WBC,Urine 8 /hpf (0-5)
--- NOTE | 2023-07-03 18:06 | CT ---
EXAMINATION TYPE: CT abdomen pelvis wo con DATE OF EXAM: 07/03/2023 COMPARISON: None HISTORY: LLQ pain CT DLP: 1320.7 mGycm Examination of the solid and hollow viscera is limited given the lack of contrast. FINDINGS: LUNG BASES: No evidence for nodule. No evidence for infiltrate. LIVER/GB: The gallbladder is unremarkable. No space-occupying hepatic lesion. PANCREAS: No pancreatic mass identified. No inflammatory process seen. SPLEEN: No evidence for splenomegaly. No intrasplenic lesions seen. ADRENALS: No adrenal nodules identified. No evidence for thickening. KIDNEYS: Distal left ureteral calculus measuring 7.5 mm resulting in moderate hydronephrosis. There i s left renal edema and perinephric stranding. Calculus is approximately 7 cm from the left UVJ. Nonob structing calculus lower pole right kidney measuring 2 mm. Hypoattenuating lesion right kidney. No ri ght-sided hydronephrosis. BOWEL: Appendix has a normal appearance. No evidence of bowel obstruction. No inflammatory process. Lymph nodes: No evidence for adenopathy greater than 1 cm. Abdominal aorta: Atheromatous changes seen. No evidence for aneurysm. Genital organs: No significant abnormality. Other: No significant abnormality. IMPRESSION: Distal left ureteral calculus measuring 7.5 mm resulting in moderate hydronephrosis. There is left re nal edema and perinephric stranding. Calculus is approximately 7 cm from the left UVJ.
[2023-07-03 19:12] VITALS: BP 145/78; RESP 18; TEMP 98.2
== END 2023-07-03 18:41 | disposition home or self-care (01) ==
LOC: EC 16:55
DX: N13.2 Hydronephrosis with renal and ureteral calculous obstruction (principal); E66.9 Obesity, unspecified; Z88.5 Allergy status to narcotic agent; Z88.8 Allergy status to other drugs, medicaments and biological substances; Z68.36 Body mass index [BMI] 36.0-36.9, adult
CPT/HCPCS: 36415; 80053; 83605; 85025; 81001; 74176; 99284; 96374; 96375; 96361; J2405; J1885

== ENCOUNTER → 2023-07-06 | Outpatient (CLI) | payer BC ==
--- NOTE | 2023-07-06 14:58 | XR ---
EXAMINATION TYPE: XR KUB DATE OF EXAM: 07/06/2023 COMPARISON: None HISTORY: Renal calculus TECHNIQUE: AP abdomen supine view FINDINGS: Normal colonic bowel gas is present. Psoas margins are normal. Organomegaly is not evident. No renal calcifications are identified. There are calcifications within the pelvis which could be re lated to phleboliths. Correlate with location of the patient's pain IMPRESSION: 1. Nonspecific abdomen
== END | disposition home or self-care (01) ==
LOC: RADXRMAIN 14:21
PROVIDERS: ATTEND Urology
DX: N20.2 Calculus of kidney with calculus of ureter (principal)
CPT/HCPCS: 74018

== ENCOUNTER → 2024-06-28 | Outpatient (CLI) | payer BC | END | disposition home or self-care (01) | LOC: LABWHC1 11:52 | PROVIDERS: ATTEND Internal Medicine Medical Oncology | DX: R06.02 Shortness of breath (principal) | CPT/HCPCS: 36415; 84484; 85379 ==

== ENCOUNTER → 2024-07-15 | Outpatient (CLI) | payer BC ==
[2024-07-15 18:21] LABS: Basophils # (A) 0.07 X 10*3/uL (0.00-0.10); Basophils % (A) 0.7 %; Eosinophils # (A) 0.07 X 10*3/uL (0.04-0.35); Eosinophils % (A) 0.7 %; HCT 41.7 % (37.2-46.3); HGB 13.4 g/dL (12.0-15.0); Lymphocytes # (A) 3.27 X 10*3/uL (0.90-5.00); Lymphocytes % (A) 32.7 %; MCH 27.6 pg (27.0-32.0); MCHC 32.1 g/dL (32.0-37.0); Mean Platelet Volume 9.2 FL (9.5-12.2); Monocytes # (A) 0.71 X 10*3/uL (0.20-1.00); Monocytes % (A) 7.1 %; NRBC Per 100 WBC 0 X 10*3/uL (0.00-0.01); Neutrophils # (A) 5.85 X 10*3/uL (1.80-7.70); Neutrophils % (A) 58.5 %; Platelet Count 353 X 10*3/uL (140-440); RBC 4.85 X 10*6/uL (4.10-5.20); RDW 13.8 % (11.5-14.5)
[2024-07-15 19:47] LABS: Erythrocyte Sedimentation Rate 21 mm/Hr (0-30)
[2024-07-16 03:19] LABS: Hepatitis C IgG Antibody Nonreactive (Nonreactive)
[2024-07-16 03:32] LABS: ALT 17 U/L (8-44); AST 17 U/L (13-35); Albumin 4.4 g/dL (3.8-4.9); Albumin/Globulin Ratio 1.47 Ratio (1.60-3.17); Alkaline Phosphatase 80 U/L (41-126); BUN/Creat Ratio 35.75 Ratio (12.00-20.00); Blood Urea Nitrogen 14.3 mg/dL (9.0-27.0); Carbon Dioxide 23.7 mmol/L (21.6-31.8); Chloride 104 mmol/L (96-109); Chol/HDL Ratio 4.57 Ratio; Glucose 89 mg/dL (70-110); LDL Cholesterol,Calculated 156.3 mg/dL (0.0-131.0); Potassium 3.8 mmol/L (3.5-5.5); Rheumatoid Factor, Qnt <15 IU/mL (0-15); Sodium 139 mmol/L (135-145); Total Bilirubin 0.3 mg/dL (0.3-1.2); Total Protein 7.4 g/dL (6.2-8.2); Uric Acid 4.4 mg/dL (2.9-7.7)
[2024-07-16 06:34] LABS: Apolipoprotein A1 167 mg/dL (125 - 215)
== END | disposition home or self-care (01) ==
LOC: LABWHC1 16:21
PROVIDERS: ATTEND Family Medicine
DX: Z00.00 Encounter for general adult medical examination without abnormal findings (principal); I10 Essential (primary) hypertension; I25.2 Old myocardial infarction; E66.01 Morbid (severe) obesity due to excess calories; E78.00 Pure hypercholesterolemia, unspecified; G47.33 Obstructive sleep apnea (adult) (pediatric); E11.65 Type 2 diabetes mellitus with hyperglycemia; M25.50 Pain in unspecified joint; Z91.018 Allergy to other foods
CPT/HCPCS: 36415; 80053; 80061; 82172; 82306; 82533; 83090; 84443; 84550; 85025; 85652; 86140; 86431; 86803; 87522